=== PATIENT | female | born 2005 | race Two or more races ===

== ENCOUNTER 2024-04-22 09:55 | Inpatient (IN) | payer OTHER ==
[2024-04-22] MEDS: ELECTROLYTE-148 SOLN 1,000 ML IV SCH (11:35)
[2024-04-22] MEDS ORDERED: OXYTOCIN 20 UNITS in 0.9% NS 20 UNIT/1,000 ML INFUS.BAG IV ONE ×2 (11:36→17:42)
[2024-04-22] MEDS ORDERED: morphine SULFATE 4 MG/ML VIAL ONE ×2 (11:36→12:15)
[2024-04-22] MEDS: morphine SULFATE 4 MG/ML VIAL IVPUSH STA (11:40)
[2024-04-22 12:10] VITALS: BMI 28.3
[2024-04-22] MEDS ORDERED: MISOPROSTOL 200 MCG TABLET ONE ×2 (12:18→12:34)
[2024-04-22] MEDS: MISOPROSTOL 100 MCG TABLET PV ONE (12:35)
[2024-04-22] MEDS: MISOPROSTOL 200 MCG TABLET PR ONE (12:35)
[2024-04-22] MEDS ORDERED: oxyCODONE HCL 5 MG TABLET PO PRN (12:42)
[2024-04-22] MEDS ORDERED: WITCH HAZEL 50% (TUCKS) 40 PAD/JAR PAD TP PRN (12:42)
[2024-04-22] MEDS ORDERED: BENZOCAINE 20% 57 GM BOTTLE TP PRN (12:42)
[2024-04-22] MEDS ORDERED: BISACODYL 10 MG SUPP.RECT RC PRN (12:42)
[2024-04-22] MEDS ORDERED: BENZOCAINE 28 GM HEMORRHOIDAL OINTMENT TP PRN (12:42)
[2024-04-22] MEDS ORDERED: MISOPROSTOL 100 MCG TABLET PV ONE (12:45)
[2024-04-22] MEDS: OXYTOCIN 20 UNITS in 0.9% NS 20 UNIT/1,000 ML INFUS.BAG IV SCH (12:45)
[2024-04-22 13:52] LABS: BASO % 0.3 % (0-2.0); EOS % 0.4 % (0-4.5); HEMATOCRIT 36.1 % (32.4-45.2); HEMOGLOBIN 11.9 GM/dL (10.7-15.3); LYMPH % 10.3 % (8-40); MCH 28.2 pg (25.7-33.7); MCHC 32.8 g/dl (32.0-36.0); MONO % 5.5 % (3.8-10.2); NEUT % 83.5 % (42.8-82.8); PLATELET COUNT 187 10^3/uL (134-434); RDW 17.2 % (11.6-15.6); WHITE BLOOD COUNT 8.1 K/mm3 (4.0-10.0)
[2024-04-22] MEDS ORDERED: ceFAZolin SODIUM 1 GM VIAL ONE (14:11)
[2024-04-22] MEDS: CEFAZOLIN SODIUM 2 GM VIAL IVPB ONE (14:15)
[2024-04-22] MEDS ORDERED: ONDANSETRON 4 MG/2 ML VIAL ONE (14:25)
[2024-04-22] MEDS ORDERED: AZITHROMYCIN IVPB 500 MG/250 ML BAG IVPB ONE (14:28)
[2024-04-22] MEDS: ONDANSETRON 4 MG/2 ML VIAL IVPUSH ONE (14:30)
[2024-04-22 15:18] LABS: POTASSIUM 3.9 mmol/L (3.5-5.1)
[2024-04-22] MEDS: AZITHROMYCIN IVPB 500 MG/250 ML BAG IVPB ONE (15:20)
[2024-04-22 15:22] LABS: BLOOD UREA NITROGEN 8.7 mg/dL (7-18); CALCIUM 8.3 mg/dL (8.5-10.1)
[2024-04-22] MEDS: HYDROmorphone *PCA* 10MG/50ML DISP.SYRIN PCA SCH (15:22)
[2024-04-22 15:25] LABS: CREATININE 0.6 mg/dL (0.55-1.3)
[2024-04-22 15:27] LABS: BILIRUBIN,TOTAL 0.4 mg/dL (0.2-1); TOT PROT 6.8 g/dl (6.4-8.2)
[2024-04-22] MEDS ORDERED: IBUPROFEN 600 MG TABLET (FP) PO ONE (18:15)
[2024-04-22] MEDS: IBUPROFEN 600 MG TABLET (FP) PO PRN (18:18)
[2024-04-22 19:02] VITALS: RESP 18
[2024-04-22] MEDS: ACETAMINOPHEN 325 MG TABLET (FP) PO PRN (22:51)
[2024-04-23 08:05] LABS: BASO % 0.5 % (0-2.0); HEMATOCRIT 35.1 % (32.4-45.2); HEMOGLOBIN 11.4 GM/dL (10.7-15.3); LYMPH % 33.9 % (8-40); MCH 28.2 pg (25.7-33.7); MCHC 32.5 g/dl (32.0-36.0); MEAN CELL VOLUME 86.9 fl (80-96); MEAN PLT VOLUME 9.7 fl (7.5-11.1); MONO % 7.9 % (3.8-10.2); NEUT % 55.7 % (42.8-82.8); PLATELET COUNT 176 10^3/uL (134-434); RBC 4.04 M/mm3 (3.60-5.2)
[2024-04-23 09:06] VITALS: BP 132/88; PULSE 90; TEMP 98.1
[2024-04-23] MEDS: FLU VACCINE (FLULAVAL) PF 45 MCG/0.5 ML SYRINGE 2024-2025 IM ONE (10:29)
[2024-04-23] MEDS: SERTRALINE HCL 50 MG TABLET (FP) PO ONE (10:29)
== END 2024-04-23 17:40 | disposition home or self-care (01) | DRG 560 ==
LOC: JDEL 09:55 → JLDR 11:10 → J3W 20:01
PROVIDERS: ADMIT Student in an Organized Health Care Education/Training Program; ATTEND Student in an Organized Health Care Education/Training Program
PROC: 10E0XZZ Delivery of Products of Conception, External Approach (ICD-10-PCS; principal; 2024-04-22)
DX: O32.1XX0 Maternal care for breech presentation, not applicable or unspecified (principal); Z3A.29 29 weeks gestation of pregnancy; Z37.1 Single stillbirth
CPT/HCPCS: 36415; 59409; 76801-TC; 80053; 83036; 84443; 85025; 86695; 86696; 86747; 86777; 86778; 86850; 86900; 86901; 88307-TC; 90656; G0008